=== PATIENT | female | born 1955 | race Caucasian/White ===

== ENCOUNTER 2017-02-05 12:58 | Outpatient (CLI) | payer OTHER ==
[~2017-02-05 12:58] MED LIST: ABILIFY5 MG PO; ASPIRIN ADULT L81 MG PO; COUMADIN1 MG PO; DOXYCYCLINE100 MG PO; HUMALIN R100 UNITS/ SC; HUMULIN R1 ML SC; K-TABS10 MEQ PO; LASIX20 MG PO; LIPITOR40 MG PO; LOVASTATIN10 M1 PO; LOVASTATIN40 MG PO; LOVENOX80 MG/0.8 SC; NPH INSULIN SC; NYSTATIN100000 M2 TOP; PRILOSEC20 MG PO; VICODIN EQUIVAL1 TAB PO; WARFARIN SODIUM5 MG PO; ZESTRIL5 MG PO
--- NOTE | 2017-02-06 17:51 | DIAGNOSTIC IMAGING REPORT ---
REFERRING PHYSICIAN/PROVIDER: Amarjit Mckeon MD CONSULTING INDUSTRIAL MACHINE OPERATOR: Amarjit Mckeon MD PROCEDURE: M-mode 2D echocardiography with spectral and color flow Doppler TECHNICAL QUALITY: Suboptimal. INDICATION: CHF RHYTHM DURING PROCEDURE: Atrial fibrillation. INTERPRETATIONS: LEFT VENTRICLE: There is mild concentric left ventricular hypertrophy. The LV chamber size is within normal limits. Left ventricular ejection fraction is around 65-70%. There are no focal wall motion abnormalities. Diastolic function could not be assessed due to atrial fibrillation. RIGHT VENTRICLE: The right ventricular chamber size is at least mildly enlarged. The right ventricular systolic function is borderline reduced. There might be some mild evidence of flattening of the interventricular septum which could be consistent with RV pressure/volume overload. ATRIA: The left atrial chamber size is within normal limits. The right atrial chamber size is enlarged probably in the range of mild to moderately enlarged. MITRAL VALVE: The mitral leaflets appear to have normal structure. There is mild to moderate mitral regurgitation. AORTIC VALVE: The aortic valve is not well visualized. The peak velocity is 1.4 meters per second and the mean gradient is 3.7 millimeters of mercury. There is no evidence of significant aortic valvular stenosis. There is no evidence of significant aortic regurgitation. TRICUSPID VALVE: There is evidence for mild tricuspid regurgitation. The leaflets are not well visualized but appear to be thin and pliable. The right ventricular systolic pressure is 40 mmHg plus the right atrial pressure which cannot be assessed on today's examination. PULMONIC VALVE: The pulmonic valve is not well visualized. There is no evidence of pulmonic regurgitation. GREAT VESSELS: The aorta root and the ascending aorta are both within normal limits. The IVC is not well visualized. PERICARDIUM: There is no evidence of significant pericardial effusion. IMPRESSION: 1. There is normal left ventricular systolic function. 2. The right ventricular chamber size is at least mildly enlarged with borderline reduced RV systolic function. Right ventricular systolic pressures could not be estimated on today's examination because of the lack of a right atrial pressure measurement, but is at least 40 mmHg. 3. There is mild to moderate mitral regurgitation but otherwise no other significant valvular heart disease.
== END 2017-02-05 23:00 ==
LOC: US SRH 12:58
DX: I50.9 Heart failure, unspecified (principal); I34.0 Nonrheumatic mitral (valve) insufficiency